=== PATIENT | female | born 1965 | race Caucasian/White ===

== ENCOUNTER 2017-05-12 10:24 | Emergency (ER) | payer BC, MEDICAID ==
[2017-05-12] MEDS ORDERED: Sodium Chloride 0.9% 10 ML Syringe FLUSH PRN (10:48)
[2017-05-12] MEDS ORDERED: Iopamidol 755 Mg/ML 75 ML Bottle IV ONE (11:39)
[2017-05-12] MEDS ORDERED: FLU Vacc QS 2017-18 (36mos UP)/PF 60 MCG/0.5 ML Syringe IM ONE (11:45)
[2017-05-12] MEDS ORDERED: HYDROmorphone 2 MG/ML SDV IM ONE (12:21)
[2017-05-12] MEDS ORDERED: HYDROmorphone 2 MG/ML SDV IVPUSH ONE (12:24)
[2017-05-12] MEDS ORDERED: Ondansetron 4 MG/2 ML SDV IVPUSH ONE (12:25)
--- NOTE | 2017-05-12 13:13 | EDM.PDOC ---
ED HPI GENERAL MEDICAL PROBLEM - General Chief Complaint: General Stated Complaint: POST SURGERY PAIN Time Seen by Provider: 05/12/17 10:30 Source of Information: Reports: Patient History Limitations: Reports: No Limitations - History of Present Illness INITIAL COMMENTS - FREE TEXT/NARRATIVE: Patient is a 52 year old woman who had a stimulator put into her back 2 days ago to help with bowel incontinence. She is on Cephalexin but the surgical wound is red, swollen and painful when she lays down on her back. No fever or chills or other complaints. No urinary symptoms. The oxycodone and cephalexin are not doing much to take away her pain or the redness in the wound. Onset: Today Onset Date: 05/12/17 Onset Time: 03:00 Duration: Hour(s): Location: Reports: Back (In the surgical wound.) Quality: Reports: Ache Severity: Moderate Improves with: Reports: None Worsens with: Reports: Other (Laying on back.) Context: Reports: Other (Surgery 2 days ago with [facility] [place] Associated Symptoms: Reports: No Other Symptoms Treatments CORPSMAN: Reports: Other Medication(s) (Cephalexin) Rt lower back (post-op site) Pain Score (Numeric/FACES): 7 - Related Data Allergies Allergy/AdvReac Type Severity Reaction Status Date / Time No Known Allergies Allergy Verified 05/12/17 10:50 Home Meds: Home Meds ARIPiprazole [Abilify] 2 mg PO DAILY 05/12/17 [History] Cephalexin [IJD: Cephalexin] 500 mg PO QID 05/12/17 [History] Hyoscyamine [Levsin] 0.125 mg PO ASDIRECTED PRN 05/12/17 [History] L.acidoph,Paracasei, B.lactis [Probiotic] 1 each PO DAILY 05/12/17 [History] Topiramate [Topamax] 50 mg PO BID 05/12/17 [History] Vilazodone [Viibryd] 20 mg PO DAILY 05/12/17 [History] Vilazodone [Viibryd] 40 mg PO DAILY 05/12/17 [History] lamoTRIgine [Lamictal] 150 mg PO BID 05/12/17 [History] oxyCODONE 5 mg PO ASDIRECTED PRN 05/12/17 [History] Past Medical History - Past Health History Medical/Surgical History: Denies Medical/Surgical History Cardiovascular History: Reports: Other (See Below) Other Cardiovascular History: low BP, Psychiatric History: Reports: Anxiety, Depression, Panic Attack - Past Surgical History Cardiovascular Surgical History: Reports: Other (See Below) Other Cardiovascular Surgeries/Procedures: loop recorder GI Surgical History: Reports: Appendectomy Social & Family History - Family History Family Medical History: Noncontributory - Tobacco Use Smoking Status *Q: Current Some Day Smoker Years of Tobacco use: 10 Packs/Tins Daily: 0.1 Second Hand Smoke Exposure: No - Alcohol Use Days Per Week of Alcohol Use: 0 - Recreational Drug Use Recreational Drug Use: No Drug Use in Last 12 Months: No Recreational Drug Type: Reports: Amphetamines (Speed), Cocaine, Marijuana/ Hashish, Opium, Psilocybin (Mushrooms) Recreational Drug Last Use: 20+ years ago ED ROS GENERAL - Review of Systems Review Of Systems: See Below Constitutional: Reports: No Symptoms HEENT: Reports: No Symptoms Respiratory: Reports: No Symptoms Cardiovascular: Reports: No Symptoms Endocrine: Reports: No Symptoms GI/Abdominal: Reports: No Symptoms : Reports: No Symptoms Musculoskeletal: Reports: No Symptoms Skin: Reports: Rash Neurological: Reports: No Symptoms Psychiatric: Reports: No Symptoms Hematologic/Lymphatic: Reports: No Symptoms Immunologic: Reports: No Symptoms ED EXAM, GENERAL - Physical Exam Exam: See Below Exam Limited By: No Limitations General Appearance: Alert, WD/WN, No Apparent Distress Eye Exam: Bilateral Eye: EOMI, Normal Fundi, Normal Inspection, PERRL Ears: Normal External Exam, Normal Canal, Hearing Grossly Normal, Normal TMs Ear Exam: Bilateral Ear: Auricle Normal, Canal Normal, TM normal Nose: Normal Inspection, Normal Mucosa, No Blood Throat/Mouth: Normal Inspection, Normal Lips, Normal Teeth, Normal Gums, Normal Oropharynx, Normal Voice, No Airway Compromise Head: Atraumatic, Normocephalic Neck: Normal Inspection, Supple, Non-Tender, Full Range of Motion Respiratory/Chest: No Respiratory Distress, Lungs Clear, Normal Breath Sounds, No Accessory Muscle Use, Chest Non-Tender Cardiovascular: Normal Peripheral Pulses, Regular Rate, Rhythm, No Edema, No Gallop, No JVD, No Murmur, No Rub GI/Abdominal: Normal Bowel Sounds, Soft, Non-Tender, No Organomegaly, No Distention, No Abnormal Bruit, No Mass Back Exam: Normal Inspection, Full Range of Motion, Other (Erythema and cellulitis in surgical wound in left lower back.) Extremities: Normal Inspection, Normal Range of Motion, Non-Tender, Normal Capillary Refill, No Pedal Edema Neurological: Alert, Oriented, CN II-XII Intact, Normal Cognition, Normal Gait, Normal Reflexes, No Motor/Sensory Deficits Psychiatric: Normal Affect, Normal Mood Skin Exam: Erythema, Rash, Wound/Incision (Around left lower back surgical site where stimulator was placed.) Course - Vital Signs Text/Narrative:: Uneventful ED course. Her labs were all normal and the CT showed a wound infection and cellulitis. No abscess. Discussed the case with her surgeon, Dr. Senior of [facility] and he directed us to put her on Clindamycin 300 mg po tid x 10 days, #30 and Tramadol 50 mg po q 4 hours prn pain, 20, no refills. He would like to talk to her on May 15 to see how the infection is doing and to see if he needs to see her that day. She will stop the Cephalexin and she can take the oxycodone she has if needed. Last Recorded V/S: Last Vital Signs Temp 37.2 C 05/12/17 10:25 Pulse 89 05/12/17 10:25 Resp 17 05/12/17 10:25 BP 118/62 05/12/17 10:25 Pulse Ox 98 05/12/17 10:25 - Orders/Labs/Meds Orders: Active Orders 24 hr Category Date Time Status Abdomen Pelvis w Cont [CT] Stat Exams 05/12/17 10:47 Taken Sodium Chloride 0.9% [Saline Flush] Med 05/12/17 10:48 Active 10 ml FLUSH ASDIRECTED PRN Saline Lock Insert [OM.PC] Routine Oth 05/12/17 10:48 Ordered Medication Orders Sodium Chloride (Saline Flush) 10 ml FLUSH ASDIRECTED PRN PRN Reason: Keep Vein Open Last Admin: 05/12/17 11:23 Dose: 10 ml Labs: Laboratory Tests 05/12/17 05/12/17 05/12/17 Range/Units 11:12 11:12 11:25 WBC 9.4 (4.5-12.0) X10-3/uL RBC 4.40 (3.23-5.20) x10(6)uL Hgb 13.5 (11.5-15.5) g/dL Hct 39.0 (30.0-51.3) % MCV 88.8 (80-96) fL MCH 30.6 (27.7-33.6) pg MCHC 34.5 (32.2-35.4) g/dL RDW 12.5 (11.5-15.5) % Plt Count 223 (125-369) X10(3)uL MPV 8.6 (7.4-10.4) fL Neut % (Auto) 61.7 (46-82) % Lymph % (Auto) 25.8 (13-37) % Wells % (Auto) 4.9 (4-12) % Eos % (Auto) 7 H (1.0-5.0) % Baso % (Auto) 1 (0-2) % Neut # (Auto) 5.8 (1.6-8.3) # Lymph # (Auto) 2.4 (0.6-5.0) # Wells # (Auto) 0.5 (0.0-1.3) # Eos # (Auto) 0.6 (0.0-0.8) # Baso # (Auto) 0.1 (0.0-0.2) # Sodium 136 (135-145) mmol/L Potassium 4.0 (3.5-5.3) mmol/L Chloride 101 (100-110) mmol/L Carbon Dioxide 25 (23-29) mmol/L BUN 14 (5-20) mg/dL Creatinine 1.2 (0.6-1.3) mg/dL Est Cr Clr Drug Dosing 46.82 mL/min Estimated GFR (MDRD) 47 L (>60) BUN/Creatinine Ratio 11.7 (9-20) Glucose 109 (80-116) mg/dL Calcium 9.3 (8.6-10.2) mg/dL Total Bilirubin 0.6 (0.1-1.3) mg/dL AST 24 D (5-27) IU/L ALT 15 D (14-26) IU/L Alkaline Phosphatase 86 (56-112) IU/L Total Protein 7.6 (6.0-8.0) g/dL Albumin 4.6 (3.5-5.2) g/dL Globulin 3.0 g/dL Albumin/Globulin Ratio 1.5 Urine Color Yellow (YELLOW) Urine Appearance Slightly cloudy (CLEAR) Urine pH 7.0 H (5.0-6.5) Ur Specific [place] 1.010 (1.010-1.025) Urine Protein Negative (NEGATIVE) mg/dL Urine Glucose (UA) Normal (NEGATIVE) mg/dL Urine Ketones Negative (NEGATIVE) mg/dL Urine Occult Blood Negative (NEGATIVE) Urine Nitrite Negative (NEGATIVE) Urine Bilirubin Negative (NEGATIVE) Urine Urobilinogen 1 H (NEGATIVE) mg/dL Ur Leukocyte Esterase Negative (NEGATIVE) Urine WBC 0-5 (0) Ur Squamous Epith Cells Few H (NS,R,O) Amorphous Sediment Few Urine Bacteria Moderate H (NS) Meds: Medications Generic Name Dose Route Start Last Admin Trade Name Freq PRN Reason Stop Dose Admin Sodium Chloride 10 ml 05/12/17 10:48 05/12/17 11:23 Saline Flush FLUSH 10 ml ASDIRECTED PRN Administration Keep Vein Open Discontinued Medications Generic Name Dose Route Start Last Admin Trade Name Freq PRN Reason Stop Dose Admin Hydromorphone HCl 1 mg 05/12/17 12:21 Dilaudid IM 05/12/17 12:22 ONETIME ONE Hydromorphone HCl 1 mg 05/12/17 12:24 05/12/17 12:32 Dilaudid IVPUSH 05/12/17 12:25 1 mg ONETIME ONE Administration Influenza Virus Vaccine 60 mcg 05/12/17 11:45 05/12/17 12:15 Fluzone Quad [id number] IM 05/12/17 11:46 60 mcg .ONCE ONE Administration Iopamidol 67 ml 05/12/17 11:39 05/12/17 11:58 Isovue-370 (76%) IV 05/12/17 11:40 67 ml ONETIME ONE Administration Ondansetron HCl 4 mg 05/12/17 12:25 05/12/17 12:30 Zofran IVPUSH 05/12/17 12:26 4 mg ONETIME ONE Administration Departure - Departure Time of Disposition: 13:23 Disposition: Home, Self-Care 01 Condition: Good Clinical Impression: Wound infection after surgery, Cellulitis - Discharge Information Referrals: PCP,None [Primary Care Provider] - - My Orders Last 24 Hours: My Active Orders 05/12/17 10:47 Abdomen Pelvis w Cont [CT] Stat 05/12/17 10:48 Sodium Chloride 0.9% [Saline Flush] 10 ml FLUSH ASDIRECTED PRN Saline Lock Insert [OM.PC] Routine - Assessment/Plan Last 24 Hours: My Active Orders 05/12/17 10:47 Abdomen Pelvis w Cont [CT] Stat 05/12/17 10:48 Sodium Chloride 0.9% [Saline Flush] 10 ml FLUSH ASDIRECTED PRN Saline Lock Insert [OM.PC] Routine
[2017-05-12 13:31] VITALS: BP 117/66
== END 2017-05-12 13:26 | disposition home or self-care (01) ==
LOC: FB.ED 10:24
DX: T81.4XXA Infection following a procedure, initial encounter (principal); L03.312 Cellulitis of back [any part except buttock and flank]; F17.210 Nicotine dependence, cigarettes, uncomplicated; Z79.899 Other long term (current) drug therapy; Z98.890 Other specified postprocedural states; Z90.49 Acquired absence of other specified parts of digestive tract
CPT/HCPCS: 74177; 80053; 81001; 85025; 90471; 96374; 96375; 99284; J1170; J2405; J7050; Q9967; 90686

== ENCOUNTER 2018-03-15 13:23 | Emergency (ER) | payer MEDICARE, MEDICAID ==
[2018-03-15] MEDS ORDERED: Ketorolac 60 MG/2 ML SDV IM ONE (13:30)
--- NOTE | 2018-03-15 13:36 | EDM.PDOC ---
ED HPI GENERAL MEDICAL PROBLEM - General Stated Complaint: RT FOOT Time Seen by Provider: 03/15/18 13:23 Source of Information: Reports: Patient, Family History Limitations: Reports: No Limitations - History of Present Illness INITIAL COMMENTS - FREE TEXT/NARRATIVE: 52 y.o.w.f with a H/O Seizures, came with her SO to the ed after she twisted her right ankle and hit her left foot wjhile coming out of the trailer. She was not able to put macario onto her right leg due to pain. Her right ankle was swollen. No open wound. She had pain at her left lateral foot as well. No other acute medical issues. BP 122/56 RR 20 Pulse ox 100% on RA Temp 36.8 pulse 88 Onset Date: 03/15/18 Onset Time: 12:00 Duration: Hour(s): Location: Reports: Lower Extremity, Right Quality: Reports: Ache, Dull, Pressure Severity: Mild Improves with: Reports: Rest Worsens with: Reports: Movement Context: Reports: Trauma Associated Symptoms: Reports: No Other Symptoms Treatments GATE AGENT: Reports: Other (see below) (none) R lateral ankle Pain Score (Numeric/FACES): 10 - Related Data Allergies Allergy/AdvReac Type Severity Reaction Status Date / Time No Known Allergies Allergy Verified 03/15/18 13:31 Home Meds: Home Meds Topiramate [Topamax] 50 mg PO BID 05/12/17 [History] lamoTRIgine [Lamictal] 150 mg PO BID 05/12/17 [History] Acetaminophen/HYDROcodone [[place] 325-5 MG] 1 - 2 tab PO Q6H PRN #14 tab [Rx] Alosetron HCl 1 mg PO BID 03/15/18 [History] Aspirin [Ecotrin] 81 mg PO DAILY 03/15/18 [History] Eszopiclone 3 mg BEDTIME PRN 03/15/18 [History] Omeprazole 20 mg DAILY 03/15/18 [History] Vortioxetine Hydrobromide [Brintellix] 20 mg PO DAILY 03/15/18 [History] hydrOXYzine pamoate [Hydroxyzine Pamoate] 25 mg TID PRN 03/15/18 [History] Past Medical History - Past Health History Medical/Surgical History: Denies Medical/Surgical History Cardiovascular History: Reports: Other (See Below) Other Cardiovascular History: low BP, Psychiatric History: Reports: Anxiety, Depression, Panic Attack - Past Surgical History Cardiovascular Surgical History: Reports: Other (See Below) Other Cardiovascular Surgeries/Procedures: loop recorder GI Surgical History: Reports: Appendectomy Social & Family History - Family History Family Medical History: Noncontributory Review of Systems - Review of Systems Review Of Systems: See Below Constitutional: Reports: No Symptoms Eyes: Reports: No Symptoms Ears: Reports: No Symptoms Nose: Reports: No Symptoms Mouth/Throat: Reports: No Symptoms Respiratory: Reports: No Symptoms Cardiovascular: Reports: No Symptoms GI/Abdominal: Reports: No Symptoms Genitourinary: Reports: No Symptoms Musculoskeletal: Reports: Other (bilat foot pain, right ankle pain with LROM) Skin: Reports: No Symptoms Neurological: Reports: No Symptoms Psychiatric: Reports: No Symptoms ED EXAM, GENERAL - Physical Exam Exam: See Below Exam Limited By: No Limitations General Appearance: Alert, WD/WN, Mild Distress Eye Exam: Bilateral Eye: Normal Inspection Ears: Normal External Exam Ear Exam: Bilateral Ear: Auricle Normal Nose: Normal Inspection Throat/Mouth: Normal Inspection, Normal Lips, Normal Voice, No Airway Compromise Head: Atraumatic, Normocephalic Neck: Normal Inspection, Supple, Non-Tender, Full Range of Motion Respiratory/Chest: No Respiratory Distress, Lungs Clear Cardiovascular: Normal Peripheral Pulses, Regular Rate, Rhythm, No Edema Peripheral Pulses: 1+: Brachial (R) GI/Abdominal: Normal Bowel Sounds, Soft, Non-Tender, No Organomegaly, No Distention, No Abnormal Bruit, No Mass, Pelvis Stable (Female) Exam: Deferred Rectal (Female) Exam: Deferred Back Exam: Normal Inspection, Full Range of Motion Extremities: No Pedal Edema, Limited Range of Motion (right ankle due to pain) Neurological: Alert, Oriented, CN II-XII Intact, Normal Cognition, Abnormal Gait (unable to ambulate due to pain) Psychiatric: Normal Affect, Normal Mood Skin Exam: Warm, Dry, Intact, Normal Color, No Rash Lymphatic: No Adenopathy Course - Vital Signs Text/Narrative:: 52 y.o.w.f with a H/O Seizures, came with her SO to the ed after she twisted her right ankle and hit her left foot wjhile coming out of the trailer. She was not able to put macario onto her right leg due to pain. Her right ankle was swollen. No open wound. She had pain at her left lateral foot as well. No other acute medical issues. BP 122/56 RR 20 Pulse ox 100% on RA Temp 36.8 pulse 88 PE; WNWD W F with right ankle and bilat foot pain. Imaging: mildly displaced Fx right distal fibula Impression: mildly displaced Fx right distal fibula Tx: Posterior splint, Ice Toradol, Crutches Consultation: Dr. Appiah, Ortho: Pst splin, no weight bearing, can see the pt this . Reexam: Improved Plan: D/C with instructions Last Recorded V/S: Last Vital Signs Temp 36.6 C 03/15/18 13:25 Pulse 70 03/15/18 13:25 Resp 18 03/15/18 14:55 BP 110/52 L 03/15/18 14:55 Pulse Ox 99 03/15/18 14:55 - Orders/Labs/Meds Orders: Active Orders 24 hr Category Date Time Status Cooling Warming Measures [RC] ASDIRECTED Care 03/15/18 13:33 Active Ice Bag [Ice Therapy] [OM.PC] Routine Oth 03/15/18 13:33 Ordered Meds: Medications Discontinued Medications Generic Name Dose Route Start Last Admin Trade Name Garyq PRN Reason Stop Dose Admin Ketorolac Tromethamine 60 mg 03/15/18 13:30 03/15/18 14:25 Toradol IM 03/15/18 13:31 60 mg ONETIME ONE Administration Departure - Departure Time of Disposition: 14:45 Disposition: Home, Self-Care 01 Condition: Good Clinical Impression: Fracture of distal fibula Qualifiers: Encounter type: initial encounter Fracture type: closed Laterality: right - Discharge Information *PRESCRIPTION DRUG MONITORING PROGRAM REVIEWED*: Yes *COPY OF PRESCRIPTION DRUG MONITORING REPORT IN PATIENT RAFIA: Yes Prescriptions: Acetaminophen/HYDROcodone [[place] 325-5 MG] 1 - 2 tab PO Q6H PRN #14 tab PRN Reason: for severe pain only Instructions: Ankle Fracture, [id number], Crutch Use, Adult Referrals: PCP,None [Primary Care Provider] - Eliud Appiah DO [Physician] - Forms: ED Department Discharge Additional Instructions: Rest ICE and elevation, Motrin for mod pain, Hydrocodone for severe pain. Please follow up with Dr. Appiah, at [facility] next , March 21 at 11:30. Please use crutches, no weight bearing. Please come back to the ed if your symptoms get worse acutely. - My Orders Last 24 Hours: My Active Orders 03/15/18 13:33 Cooling Warming Measures [RC] ASDIRECTED Ice Bag [Ice Therapy] [OM.PC] Routine - Assessment/Plan Last 24 Hours: My Active Orders 03/15/18 13:33 Cooling Warming Measures [RC] ASDIRECTED Ice Bag [Ice Therapy] [OM.PC] Routine
--- NOTE | 2018-03-15 14:55 | CR ---
INDICATION: Fell down camper steps. RIGHT FOOT: Three views of the right foot were obtained, 03/15/2018 - no comparisons. There is some deformity at the first metatarsal distally, which may be on the basis of bunionectomy. An acute fracture, dislocation, or other significant bone or joint abnormality was not identified. LEFT FOOT: Three views of the left foot were obtained and revealed a moderate severe bunion deformity medially with metatarsus varus, hallux valgus. Minimal degenerative change and subluxation is noted at the first metatarsophalangeal joint. A fracture, dislocation, or other significant appearing bone or joint abnormality was not identified. IMPRESSION: 1. No acute fracture or dislocation. 2. Bunion deformity medially. MTDD
--- NOTE | 2018-03-15 14:59 | CR ---
INDICATION: Fell down camper steps. RIGHT ANKLE: Three views of the right ankle revealed an oblique fracture through the distal metaphysis of the fibula in good position and alignment with overlying soft tissue swelling. The ankle mortise appeared to be fairly intact. No other bone or joint abnormality was identified. IMPRESSION: Fibular fracture in good position and alignment. There is suggestion of a joint effusion. MTDD
[2018-03-15 15:30] VITALS: BP 110/52
== END 2018-03-15 15:13 | disposition home or self-care (01) ==
LOC: FB.ED 13:23
DX: S82.831A Other fracture of upper and lower end of right fibula, initial encounter for closed fracture (principal); Z79.82 Long term (current) use of aspirin; Z79.899 Other long term (current) drug therapy; X50.1XXA Overexertion from prolonged static or awkward postures, initial encounter
CPT/HCPCS: 29515; 73610; 73630; 96372; 99283; J1885

== ENCOUNTER 2024-07-21 21:33 | Emergency (ER) | payer MEDICARE, MEDICAID ==
[2024-07-21] MEDS ORDERED: Sodium Chloride 0.9% 10 ML Syringe FLUSH PRN (22:09)
[2024-07-21] MEDS: Ketorolac 30 MG/ML SDV IVPUSH ONE (22:16)
[2024-07-21] MEDS: Sodium Chloride 0.9% 1,000 ML IV ONE (22:17)
[2024-07-21 22:19] LABS: BASOPHILS ABSOLUTE AUTO 0.1 x10-3/uL (0.0-0.1); BASOPHILS PERCENT AUTO 0.7 % (0.2-1.5); EOSINOPHILS ABSOLUTE AUTO 0.6 x10-3/uL (0.0-0.8); EOSINOPHILS PERCENT AUTO 6.7 % (0.6-8.1); HEMATOCRIT 40.3 % (34.2-48.2); HEMOGLOBIN 13.7 g/dL (11.4-15.5); LYMPHOCYTES ABSOLUTE AUTO 2.6 x10-3/uL (1.0-4.4); LYMPHOCYTES PERCENT AUTO 29.2 % (18.4-52.1); MEAN CORPUSCULAR HEMOGLOBIN 32.9 pg (23.9-33.9); MEAN CORPUSCULAR VOLUME 96.8 fL (76.7-100.5); MEAN PLATELET VOLUME 7.3 fL (7.1-12.4); MONOCYTES ABSOLUTE AUTO 0.5 x10-3/uL (0.3-1.0); MONOCYTES PERCENT AUTO 5.8 % (4.4-15.7); NEUTROPHILS ABSOLUTE AUTO 5.1 x10-3/uL (1.5-6.3); NEUTROPHILS PERCENT AUTO 57.6 % (30.8-76.2); PLATELET COUNT,PLT 327 x10(3)uL (151-488); RED BLOOD CELL COUNT 4.17 x10(6)uL (3.60-5.20); RED CELL DISTRIBUTION WIDTH 14.7 % (12.3-16.5); WHITE BLOOD CELL COUNT,WBC 8.9 x10-3/uL (3.0-10.3)
[2024-07-21 22:23] LABS: BLOOD UREA NITROGEN,BUN 9 mg/dL (7-18); CALCIUM 9.1 mg/dL (8.6-10.2); CARBON DIOXIDE,CO2 23 mmol/L (21-32); CHLORIDE,CL 107 mmol/L (100-110); ESTIMATED GFR 64 mL/min (>60); GLUCOSE RANDOM 125 mg/dL (80-116); POTASSIUM,K 3.5 mmol/L (3.5-5.3); SODIUM,NA 143 mmol/L (135-145)
[2024-07-21 22:29] LABS: A/G RATIO 0.8; ALANINE AMINOTRANSFERASE,ALT 24 U/L (12-36); ALBUMIN 3.2 g/dL (3.2-4.6); ALKALINE PHOSPHATASE 120 IU/L (56-112); ASPARTATE AMNIOTRANSFERASE,AST 11 IU/L (5-25); BILIRUBIN TOTAL 0.2 mg/dL (0.1-1.3); PROTEIN TOTAL,TP 7.2 g/dL (6.0-8.0)
[2024-07-21] MEDS: Iopamidol 755 Mg/ML 100 ML Bottle IV STA (23:56)
[2024-07-22] MEDS: Ketorolac 30 MG/ML SDV IVPUSH ONE (01:33)
[2024-07-22] MEDS: Levofloxacin 500 MG Tab PO ONE (01:46)
[2024-07-22 02:03] VITALS: BP 113/62; PULSE 74
== END 2024-07-22 01:55 | disposition home or self-care (01) ==
LOC: FB.ED 21:33
DX: J90 Pleural effusion, not elsewhere classified (principal); B96.89 Other specified bacterial agents as the cause of diseases classified elsewhere; M19.90 Unspecified osteoarthritis, unspecified site; Z90.49 Acquired absence of other specified parts of digestive tract; Z79.82 Long term (current) use of aspirin; Z79.899 Other long term (current) drug therapy
CPT/HCPCS: 36415; 71046; 71275; 80053; 84484; 85025; 85379; 86140; 93005; 96361; 96374; 96376; 99285; A9270; J1885; J7030; Q9967